=== PATIENT | female | born 1990 | race Two or more races ===

== ENCOUNTER 2022-11-21 09:22 | Outpatient (CLI) | payer OTHER ==
[2022-11-21] MEDS ORDERED: METFORMIN HCL500 M4 PO (22:51)
== END 2022-11-21 09:34 | disposition home or self-care (01) ==
LOC: RX STUDY 09:22
DX: R19.00 Intra-abdominal and pelvic swelling, mass and lump, unspecified site (principal)

== ENCOUNTER 2022-11-21 22:29 | Emergency (ER) | payer OTHER ==
[~2022-11-21] VITALS: Ht 167.6 cm; Wt 83.9 kg
[2022-11-21] MEDS ORDERED: METFORMIN HCL500 M4 PO (22:51)
[2022-11-22 00:34] LABS: HEMATOCRIT 37.2 % (36.0-45.00); HEMOGLOBIN 12.1 g/dL (12.0-15.00); MEAN CELL VOLUME 82.1 fL (80.00-100.00); MEAN CORPUSCULAR HEMOGLOBIN 26.7 pg (27.00-32.0); MEAN CORPUSCULAR HGB CONC 32.5 g/dl (32.0-36.0); PLATELET COUNT 252 K/uL (150-450); RED BLOOD COUNT 4.53 M/uL (4.00-6.00); RED CELL DISTRIBUTION WIDTH 14.6 % (11.5-14.5)
[2022-11-22 00:41] LABS: INR 1.14; PARTIAL THROMBOPLASTIN TIME 29.3 SECONDS (22.0-34.0); PROTHROMBIN TIME 11.9 SECONDS (9.0-11.5)
[2022-11-22 00:45] LABS: CALCIUM 9.1 mg/dL (8.5-10.1); CREATININE SERUM 0.81 mg/dL (0.55-1.02); GFR 83.02; POTASSIUM 3.82 mEq/L (3.5-5.1)
[2022-11-22 01:25] LABS: PH,URINE 7.5 (5.0-8.0); URINE APPEARANCE Clear; URINE BILIRRUBIN Negative (NEGATIVE); URINE BLOOD Trace; URINE COLOR Yellow; URINE GLUCOSE Negative (NEGATIVE); URINE LEUKOCYTE Negative; URINE NITRATE Negative; URINE PROTEIN Negative (NEGATIVE); URINE UROBILINOGEN 0.2 E.U./dl
[2022-11-22 01:29] LABS: URINE BACTERIA 47.1 uL (0.0-1933); URINE EPITHELIAL CELLS 14.9 uL (0.0-38.8); URINE RBC 2.8 uL (0.0-20.8)
[2022-11-22 01:31] LABS: URINE WBC 0.9 uL (0.0-23.2)
== END 2022-11-22 19:45 | disposition home or self-care (01) ==
LOC: ER 22:29 → SEC-K 11-22 17:25 → ER 11-22 17:44 → MEDI 11-22 17:44 → ER 11-22 19:45 → MEDI 11-22 19:55
PROVIDERS: General Practice
DX: K56.699 Other intestinal obstruction unspecified as to partial versus complete obstruction (principal); R10.84 Generalized abdominal pain; Z91.013 Allergy to seafood; Z20.822 Contact with and (suspected) exposure to COVID-19; Z98.890 Other specified postprocedural states

== ENCOUNTER 2023-10-07 07:26 | Inpatient (IN) | payer OTHER ==
[~2023-10-07] VITALS: Ht 170.2 cm; Wt 89.8 kg
[~2023-10-07 07:26] MED LIST: METFORMIN HCL500 M4 PO
[2023-10-07] MEDS ORDERED: OBSTETRIX ONE CAPSUL (07:31)
[2023-10-07] MEDS ORDERED: MORPHINE SULFATE 4 MG/ML CARTRIDGE IV STA (07:58)
[2023-10-07] MEDS ORDERED: RINGERS SOLUTION,LACTATED 1,000 ML IV SCH (08:00)
[2023-10-07] MEDS ORDERED: PRENATAL TABLE1 EAC4 PO (08:27)
[2023-10-07 08:31] LABS: PH,URINE 6.5 (5.0-8.0); URINE APPEARANCE Cloudy; URINE BILIRRUBIN Negative (NEGATIVE); URINE BLOOD Small; URINE COLOR Yellow; URINE GLUCOSE Negative (NEGATIVE); URINE LEUKOCYTE Trace; URINE NITRATE Negative; URINE PROTEIN Negative (NEGATIVE); URINE UROBILINOGEN 0.2 E.U./dl
[2023-10-07 08:35] LABS: URINE EPITHELIAL CELLS 87.7 uL (0.0-38.8); URINE RBC 4.1 uL (0.0-20.8); URINE WBC 54.5 uL (0.0-23.2)
[2023-10-07 08:36] LABS: HEMATOCRIT 32.5 % (36.0-45.00); HEMOGLOBIN 10.9 g/dL (12.0-15.00); MEAN CORPUSCULAR HEMOGLOBIN 27.4 pg (27.00-32.0); MEAN CORPUSCULAR HGB CONC 33.4 g/dl (32.0-36.0); PLATELET COUNT 249 K/uL (150-450); RED BLOOD COUNT 3.97 M/uL (4.00-6.00); RED CELL DISTRIBUTION WIDTH 15.2 % (11.5-14.5)
[2023-10-07 08:58] LABS: URINE BACTERIA > 9821.5 uL (0.0-1933)
[2023-10-07 09:00] LABS: INR 0.97; PARTIAL THROMBOPLASTIN TIME 26.9 SECONDS (22.0-34.0); PROTHROMBIN TIME 10.2 SECONDS (9.0-11.5)
[2023-10-07 09:04] LABS: ALBUMIN 2.7 gm/dL (3.4-5.0); BILIRUBIN TOTAL 0.28 mg/dL (0.3-1.2); CALCIUM 9.2 mg/dL (8.5-10.1); CREATININE SERUM 0.86 mg/dL (0.55-1.02); GFR 76.96; GLOBULINA 3.6 G/DL (2.4-3.5); POTASSIUM 4.3 mEq/L (3.5-5.1); TOTAL PROTEIN 6.3 gm/dL (6.4-8.2)
[2023-10-07] MEDS ORDERED: ERYTHROMYCIN BASE 1 GM TUBE OP SCH (09:30)
[2023-10-07] MEDS ORDERED: OxyCODONE HCL/APAP UD (PERCOCET) PO PRN (09:30)
[2023-10-07] MEDS ORDERED: CHLORHEXIDINE GLUCONATE 120 ML BOTTLE TP SCH (09:30)
[2023-10-07] MEDS ORDERED: OXYTOCIN 1,000 ML IV SCH (09:30)
[2023-10-07] MEDS ORDERED: PNV,CALCIUM 72/IRON/FOLIC ACID 1 TAB TABLET PO SCH (09:32)
[2023-10-07] MEDS ORDERED: DOCUSATE SODIUM 100MG CAP PO SCH (09:32)
[2023-10-07] MEDS ORDERED: LIDOCAINE HCL 1% 10ML VIAL IJ ONE (10:00)
[2023-10-07 10:50] LABS: ABG PH 7.338 (7.35-7.45); ABG PO2 28.1 mmHg (80-100); ABG pCO2 42.7 mmHg (35-45); BASE EXCESS -3.3 mmol/l; BICARBONATE 22.4 mmol/l (23-25); SaO2 47.1 %; Tco2 23.7 mmol/l; o2 21 %
[2023-10-07] MEDS ORDERED: KETOROLAC TROMETHAMINE 10 MG TABLET PO SCH (12:00)
== END 2023-10-09 14:09 | disposition home or self-care (01) | DRG 807 ==
LOC: LDR 07:26 → OB/GYN 07:26
PROVIDERS: Obstetrics & Gynecology Gynecology; Obstetrics & Gynecology Maternal & Fetal Medicine; ADMIT Obstetrics & Gynecology; ATTEND Obstetrics & Gynecology
PROC: 10E0XZZ Delivery of Products of Conception, External Approach (ICD-10-PCS; principal; 2023-10-07)
PROC: 0HQ9XZZ Repair Perineum Skin, External Approach (ICD-10-PCS; 2023-10-07)
PROC: 4A1HXCZ Monitoring of Products of Conception, Cardiac Rate, External Approach (ICD-10-PCS; 2023-10-07)
DX: O70.0 First degree perineal laceration during delivery (principal); Z37.0 Single live birth; Z3A.39 39 weeks gestation of pregnancy; Z20.822 Contact with and (suspected) exposure to COVID-19

== ENCOUNTER 2024-08-31 15:30 | Emergency (ER) | payer OTHER ==
[~2024-08-31 15:30] MED LIST changes: +OBSTETRIX ONE CAPSUL; +PRENATAL TABLE1 EAC4 PO
[2024-08-31] MEDS ORDERED: KETOROLAC TROMETHAMINE 30 MG VIAL IM ONE (18:00)
[2024-08-31] MEDS ORDERED: KETOROLAC TROMETHAMINE 30 MG VIAL ONE (18:05)
[2024-08-31] MEDS ORDERED: DICLOFENAC SODI50 MG PO (19:49)
== END 2024-08-31 20:11 ==
LOC: ER 15:30
DX: M25.532 Pain in left wrist (principal); Z91.013 Allergy to seafood; Z91.041 Radiographic dye allergy status